=== PATIENT | female | born 1960 | race Caucasian/White ===

== ENCOUNTER 2017-06-08 14:57 | Day surgery (SDC) | payer OTHER ==
[~2017-06-08 14:57] MED LIST: EPINEPHRINE INJ 1 MG/10 ML DISP.SYRIN ONE; FENTANYL CITRATE INJ/PF 100 MCG/2 ML AMPUL ONE; FLUMAZENIL INJ 0.5 MG/5 ML VIAL ONE; GLUCAGON,HUMAN RECOMB 1 MG INJ ONE; MIDAZOLAM 2 MG/2 ML INJ ONE; NALOXONE HCL INJ/PF 0.4 MG/1 ML SDV ONE
[2017-06-08] MEDS: MIDAZOLAM 2 MG/2 ML INJ ONE ×2 (16:28→16:34)
--- NOTE | 2017-06-08 17:07 | Operative Report ---
Operative Report DATE OF SURGERY: 06/08/17 Operative Report: Pre-op diagnosis: Abdominal pain Post-op diagnosis: 1. Pyloric channel ulcer 2. Grade a esophagitis Surgery: Esophagogastroduodenoscopy with biopsy Medications: Versed 4 mg Fentanyl 100 mcg IV push Tissue removed: Antral biopsy for pathology Procedure: After informed consent obtained from patient, the throat was sprayed with Hurricane and conscious sedation was achieved. The upper endoscope was inserted into the esophagus under direct vision and advanced into the stomach. The duodenum was entered and examined to the second part. Endoscope was then slowly pulled out of the patient as the mucosa was examined into details. Patient tolerated procedure well. Findings Esophagus: There was a small erosion at the Z line. Z-line at: 40 cm Antrum: 6-7 mm ulcer noted at the pyloric channel Body: Normal Fundus: Normal Duodenum first part: Normal Duodenum second part: Normal Plan: Await pathology. Start omeprazole twice a day for 1 month and daily thereafter. Repeat EGD in 2 months OPERATION: .
--- NOTE | 2017-06-08 17:08 | PDOC DISCHARGE SUMMARY ---
Discharge Summary (SDC) - Discharge Final Diagnosis: Pyloric channel ulcer and esophagitis Date of Surgery: 06/08/17 Condition: Stable Treatment or Instructions: Omeprazole twice a day for 1 month and then once a day Referrals: BERTO PERES MD [Primary Care Provider] - Discharge Diet: As Tolerated Discharge Activity: Activity As Tolerated Report the Following to Your Physician Immediately: Shortness of Breath, Warmth , Increased Soreness
[2017-06-08 17:49] VITALS: BP 139/54
== END 2017-06-08 17:55 | disposition home or self-care (01) ==
LOC: END 14:57
PROVIDERS: ATTEND Internal Medicine Gastroenterology
PROC: 0DB68ZX Excision of Stomach, Via Natural or Artificial Opening Endoscopic, Diagnostic (ICD-10-PCS; principal; 2017-06-08 15:30)
DX: K21.0 Gastro-esophageal reflux disease with esophagitis (principal); K31.9 Disease of stomach and duodenum, unspecified; G61.0 Guillain-Barre syndrome; K25.9 Gastric ulcer, unspecified as acute or chronic, without hemorrhage or perforation; I10 Essential (primary) hypertension; I73.00 Raynaud's syndrome without gangrene; M79.7 Fibromyalgia; G43.909 Migraine, unspecified, not intractable, without status migrainosus; Z79.82 Long term (current) use of aspirin; Z79.899 Other long term (current) drug therapy; Z88.2 Allergy status to sulfonamides; Z79.1 Long term (current) use of non-steroidal anti-inflammatories (NSAID)
CPT/HCPCS: 43239; 88342 ×2; 88305 ×2; J2250; J3010; J0171; J1610; J2310; J3490